=== PATIENT | female | born 2000 ===

== ENCOUNTER 2024-07-22 15:26 | Outpatient (CLI) | payer OTHER | END 2024-07-22 15:28 | disposition home or self-care (01) | LOC: PRENATAL 15:26 | PROVIDERS: ATTEND Obstetrics & Gynecology Maternal & Fetal Medicine | DX: O26.849 Uterine size-date discrepancy, unspecified trimester (principal); O28.3 Abnormal ultrasonic finding on antenatal screening of mother; Z3A.16 16 weeks gestation of pregnancy ==